=== PATIENT | female | born 1985 | race Hispanic/Latino ===

== ENCOUNTER 2017-03-15 08:30 | Emergency (ER) | payer MEDICAID ==
[2017-03-15 08:40] VITALS: BP 137/88
--- NOTE | 2017-03-15 09:54 | Emergency Department Report ---
HPI - General Chief Complaint: Fall Time Seen by Provider: 03/15/17 09:31 - HPI HPI: She is a 32-year-old female with no prior medical history who presents to ED complaining of tailbone pain status post fall at home 3 days ago. Patient states Monday night she was walking down stairs and sleeve and hit her tailbone on the floor and slipped down 6 steps. She states that pain as gotten worse since then. Patient states she has not taken any medication. Patient states pain is worsened with sitting but she is able to sit. Patient states she is able to have bowel movements without problems and is able to urinate without problems She denies fevers/chills/nausea/vomiting or any other problems. ED Past Medical Hx - Past Medical History Previous Medical History?: Yes Additional medical history: Gallstones - Surgical History Past Surgical History?: Yes Hx Cholecystectomy: Yes Additional Surgical History: x 2 - Social History Smoking Status: Never Smoker Substance Use Type: Alcohol, Non Opiate Pain - Medications Home Medications: Home Medications Medication Instructions Recorded Confirmed Last Taken Type HYDROcodone/APAP 5-325 [[place] 1 each PO Q6HR PRN #12 tablet 07/03/13 Unknown Rx 5/325 mg] Sulfamethoxazole/Trimethoprim 1 each PO BID #20 tablet 07/03/13 Unknown Rx [Bactrim DS] Cyclobenzaprine [Flexeril] 10 mg PO QHS PRN #20 tablet 03/15/17 Unknown Rx Naproxen [Naprosyn] 500 mg PO BID #30 tablet 03/15/17 Unknown Rx ED Review of Systems ROS: Stated complaint: BUTTOCK PAIN Other details as noted in HPI Constitutional: denies: chills, fever Eyes: denies: eye pain, eye discharge, vision change ENT: denies: ear pain, throat pain Respiratory: denies: cough, shortness of breath, wheezing Cardiovascular: denies: chest pain, palpitations Endocrine: no symptoms reported Gastrointestinal: denies: abdominal pain, nausea, diarrhea Genitourinary: denies: urgency, dysuria, discharge Musculoskeletal: denies: back pain, joint swelling, arthralgia Skin: denies: rash, lesions Neurological: denies: headache, weakness, paresthesias Psychiatric: denies: anxiety, depression Hematological/Lymphatic: denies: easy bleeding, easy bruising Physical Exam - Physical Exam Vital Signs: Vital Signs 03/15/17 08:36 Temperature 98 F Pulse Rate 78 Respiratory 18 Rate Blood Pressure 137/88 O2 Sat by Pulse 99 Oximetry Physical Exam: GENERAL: Alert and oriented x3, no apparent distress, Normal Gait, atraumatic. HEAD: Head is normocephalic and a-traumatic. EYES: Extra ocular muscles are intact. Pupils are equal, round, and reactive to light and accommodation. LUNGS: Symetrical with respiration, No wheezing, no rales or crackles, CTAB. HEART: S1, S2 present, regular rate and rhythm without murmur, no rubs, no gallops. Non tender to palpation ABDOMEN: No organomegaly was noted,Positive bowel sounds, soft, and non- distended. . Nontender to palpation on all Quadrants, NO CVA tenderness. BACK: Full range of motion, no spinal tenderness, nontender to palpation. Mild tenderness palpation of the coccyx bone, no swelling or redness. No Lesions EXTREMITIES/MUSCULOSKELETAL: No cyanosis, clubbing, rash, lesions or edema. Full ROM bilaterally. UE/LE Pulses 2+ bilaterally. NEUROLOGIC: The patient is cooperative with no focal neurologic deficits. Normal speech. Normal sensation in bilateral upper and lower extremities, No loss of sensation, SKIN: Warm and dry, No lesions, No ulceration or induration present. ED Course Vital Signs 03/15/17 08:36 Temperature 98 F Pulse Rate 78 Respiratory 18 Rate Blood Pressure 137/88 O2 Sat by Pulse 99 Oximetry ED Medical Decision Making - Radiology Data Radiology results: report reviewed, image reviewed Fluoro Time In Minutes: LUMBOSACRAL SPINE, 3 VIEWS: History: Back pain Findings: The vertebral bodies, disk spaces and posterior elements are intact. No compression deformity or malalignment. The SI joints are symmetric and unremarkable. No acute coccyx deformity is appreciated. If further evaluation is needed CT is recommended. Impression: 1. No evidence for acute injury to the lumbar spine. Transcribed By: TTR Dictated By: COLTON ZHAO JR, MD Electronically Authenticated By: COLTON ZHAO JR, MD Signed Date/Time: 03/15/17 1026 - Medical Decision Making 32-year-old female presents to ED with myalgia is status post fall on buttock ED course: XR Series of the sacrococcygeal spine obtained. Vital signs are normal patient is in no acute distress Discussed with patient follow-up with primary care physician. Discussed the patient and take medications as prescribed. Patient has no neurological deficit. Patient is alert and oriented 3 and understands all instructions given. Discussed drowsiness effect of Flexeril makes her drowsy and not to operate machinery while taking flexeril Critical care attestation.: If time is entered above; I have spent that time in minutes in the direct care of this critically ill patient, excluding procedure time. ED Disposition Clinical Impression: Fall (on) (from) other stairs and steps, initial encounter, Myalgia Disposition: - TO HOME OR SELFCARE Is pt being admited?: No Does the pt Need Aspirin: No Condition: Stable Instructions: Trigger Point Pain (ED), Musculoskeletal Pain (ED) Prescriptions: Cyclobenzaprine [Flexeril] 10 mg PO QHS PRN #20 tablet PRN Reason: Muscle Spasm Naproxen [Naprosyn] 500 mg PO BID #30 tablet Referrals: PRIMARY CARE, [Primary Care Provider] - 3-5 Days [facility] [Outside] - 3-5 Days [facility] [Outside] - 3-5 Days Forms: Accompanied Note, Work/School Release Form(ED) Time of Disposition: 11:04
--- NOTE | 2017-03-15 10:28 | XRay Report ---
LUMBOSACRAL SPINE, 3 VIEWS: History: Back pain Findings: The vertebral bodies, disk spaces and posterior elements are intact. No compression deformity or malalignment. The SI joints are symmetric and unremarkable. No acute coccyx deformity is appreciated. If further evaluation is needed CT is recommended. Impression: 1. No evidence for acute injury to the lumbar spine.
== END 2017-03-15 11:18 | disposition home or self-care (01) ==
LOC: ED 08:30
DX: M79.1 Myalgia (principal); M54.5 Low back pain; W10.8XXA Fall (on) (from) other stairs and steps, initial encounter; Y93.89 Activity, other specified; Y92.89 Other specified places as the place of occurrence of the external cause; Y99.8 Other external cause status
CPT/HCPCS: 72100; 99283